=== PATIENT | female | born 1950 | race Caucasian/White ===

== ENCOUNTER 2017-10-06 17:02 | Outpatient (CLI) | payer MEDICARE, MEDICAID ==
--- NOTE | 2017-10-06 18:50 | RAD ---
RIGHT WRIST THREE VIEWS: INDICATIONS: Injury with pain. Assess for fracture. FINDINGS: There is an intraosseous cyst in the mid scaphoid, consistent with an intraosseous ganglion or geode. Mild widening of the scapholunate space may indicate ligamentous injury. Mild degenerative change at the carpometacarpal joints and intercarpal joints. No acute fracture identified. IMPRESSION: 1. Question ligamentous injury with widening of the scapholunate space. 2. Cystic change in the scaphoid, as described. 3. Mild degenerative changes. 4. No acute fracture identified. POS: [facility]
--- NOTE | 2017-10-06 18:53 | RAD ---
RIGHT ELBOW THREE VIEWS: HISTORY: Injury with pain. Assess for fracture. FINDINGS: Degenerative changes at the elbow noted with mild spurring from the coronoid. No fracture. No joint effusion seen. IMPRESSION: No acute fracture identified. POS: [facility]
--- NOTE | 2017-10-06 18:54 | RAD ---
RIGHT SHOULDER THREE VIEWS: HISTORY: Injury with pain. Assess for fracture. FINDINGS: No evidence of fracture or dislocation. Mild degenerative changes noted with spurring from the humer al head. AC joint is normally aligned. IMPRESSION: No acute fracture or dislocation identified. POS: [facility]
== END 2017-10-06 17:03 | disposition home or self-care (01) ==
LOC: RAD 17:02
PROVIDERS: ATTEND Family Medicine
DX: M25.531 Pain in right wrist (principal); M25.521 Pain in right elbow; M19.031 Primary osteoarthritis, right wrist

== ENCOUNTER 2017-12-19 13:57 | Outpatient (CLI) | payer MEDICARE, MEDICAID ==
--- NOTE | 2017-12-19 15:40 | MRI ---
MR OF THE RIGHT SHOULDER WITHOUT CONTRAST: INDICATION: Right shoulder pain, concern for impingement syndrome. TECHNIQUE: Multiplanar, multisequence MR images were obtained of the right shoulder without IV contrast. Motion artifact heavily limits image detail. FINDINGS: There is moderate to severe tendinosis of the supraspinatus and infraspinatus. There is a high-grade near-complete bursal surface tear involving the anterior mid supraspinatus at the footprint measurin g approximately 0.6 x 2 cm. There is abnormal linear T2 signal involving the superior glenoid labrum extending beyond the biceps anchor suspicious for a type II SLAP tear. There is some intrasubstance degenerative signal of the biceps anchor and superior glenoid labrum. The biceps tendon is located. The inferior glenohumeral labral ligamentous complex appears intact. There is mild to moderate AC joint osteoarthrosis. There is an inferior projecting osteophyte off of the AC joint causing mild to moderate encroachment on the subjacent supraspinatus. No muscular atrophy is evident. No enlarged lymph nodes are present. IMPRESSION: 1. High-grade partial thickness bursal surface tear involving the anterior supraspinatus at the foot print. This involves approximately 90% of the tendon thickness. This is a near complete rotator cuf f tear. 2. Severe tendinosis of the supraspinatus and infraspinatus. 3. Type II superior labrum anterior to posterior tear with some degenerative intrasubstance signal o f the superior glenoid labrum and biceps anchor. 4. Moderate acromioclavicular joint osteoarthrosis with mild encroachment on the supraspinatus. POS: [facility]
== END 2017-12-19 13:58 | disposition home or self-care (01) ==
LOC: TBSIIMAG 13:57
PROVIDERS: ATTEND Student in an Organized Health Care Education/Training Program
DX: M75.41 Impingement syndrome of right shoulder (principal); M75.121 Complete rotator cuff tear or rupture of right shoulder, not specified as traumatic; M19.011 Primary osteoarthritis, right shoulder; S43.431A Superior glenoid labrum lesion of right shoulder, initial encounter

== ENCOUNTER 2018-01-13 14:21 | Outpatient (CLI) | payer MEDICARE, MEDICAID ==
[2018-01-13 15:25] LABS: Hemoglobin 13.5 g/dL (12.0-16.0); Mean Corpuscular HGB CONC 33.4 g/dL (32.0-36.0); Mean Corpuscular Hemoglobin 28.4 pg (27.0-31.0); Mean Platelet Volume 9.8 fL (7.4-10.4); Platelet Count 165 thou/uL (130-400); RBC Distribution Width 13.1 % (11.5-14.5); Red Blood Cell (RBC) Count 4.75 mill/uL (4.20-5.40); White Blood Cell (WBC) Count 8.6 thou/uL (4.8-10.8)
[2018-01-13 15:43] LABS: Anion Gap 13 mmol/L (10-20); BUN (Urea Nitrogen) 23 mg/dL (9.8-20.1); Calc. Creatinine Clearance 0 mL/min (70-130); Calcium 9.6 mg/dL (7.8-10.44); Carbon Dioxide 28 mmol/L (23-31); Chloride 104 mmol/L (98-107); Estimated GFR-MDRD 50; Glucose 151 mg/dL (80-115); Potassium 3.8 mmol/L (3.5-5.1); Sodium 141 mmol/L (136-145)
--- NOTE | 2018-01-14 15:24 | EKG ---
Test Reason : Blood Pressure : / mmHG Vent. Rate : 072 BPM Atrial Rate : 072 BPM P-R Int : 146 ms QRS Dur : 090 ms QT Int : 402 ms P-R-T Axes : 058 -03 024 degrees QTc Int : 440 ms Normal sinus rhythm Cannot exclude Anterior infarct , age undetermined Abnormal ECG Confirmed by MADDISON HARE ([id number]) on 01/14/2018 3:24:11 PM Referred By: WOOD Confirmed By:MADDISON HARE
== END 2018-01-13 14:22 | disposition home or self-care (01) ==
LOC: LABBT 14:21
PROVIDERS: ATTEND Orthopaedic Surgery
DX: Z01.818 Encounter for other preprocedural examination (principal); M75.101 Unspecified rotator cuff tear or rupture of right shoulder, not specified as traumatic
CPT/HCPCS: 80048; 85027; 93005; 93010

== ENCOUNTER 2018-01-15 07:18 | Observation (INO) | payer MEDICARE, MEDICAID ==
[2018-01-13 14:53] VITALS: BMI 47.3
[2018-01-15] MEDS ORDERED: Fentanyl 100 MCG/2 ML VIAL ONE ×2 (08:08→12:14)
[2018-01-15] MEDS ORDERED: Midazolam HCl 2 mg/2 ml Vial ONE (08:08)
[2018-01-15] MEDS ORDERED: Levofloxacin 500 mg/D5W 100 ml Premix Bag ONE (09:29)
[2018-01-15] MEDS ORDERED: Clindamycin/D5W 900 mg/50 ml Premix Bag ONE (09:29)
[2018-01-15] MEDS ORDERED: Ondansetron HCl/PF 4 MG/2 ML Vial IVP PRN ×2 (10:02→12:04)
[2018-01-15] MEDS ORDERED: Ketorolac Tromethamine 30 MG/ML VIAL IVP PRN (10:02)
[2018-01-15] MEDS ORDERED: HYDROcodone/Acetaminophen 10/325 mg Tablet PO PRN ×2 (10:02)
[2018-01-15] MEDS ORDERED: Ropivacaine HCl/PF 1,100 MG in Sodium Chloride 0.9% 440 ML NERVE BLCK SCH (10:02)
[2018-01-15] MEDS ORDERED: traMADol HCl 50 MG TAB PO PRN ×2 (10:02)
[2018-01-15] MEDS ORDERED: Zolpidem Tartrate 5 MG TAB PO PRN (10:02)
[2018-01-15] MEDS ORDERED: Promethazine HCl 25 MG/ML VIAL IM PRN ×2 (10:02→12:04)
[2018-01-15] MEDS ORDERED: Fentanyl 100 MCG/2 ML VIAL IV PRN (10:04)
[2018-01-15] MEDS ORDERED: Bupivacaine HCl 0.5%/Epinephrine 1:200,000/PF 30 ml Vial ONE (10:40)
[2018-01-15] MEDS ORDERED: Promethazine HCl 25 MG/ML VIAL SLOW IVP PRN (12:04)
[2018-01-15] MEDS ORDERED: Ropivacaine 0.2% HCl/PF (40 MG/20 ML VIAL) ONE (13:45)
[2018-01-15] MEDS ORDERED: Ropivacaine 0.5% HCl/PF (150 MG/30 ML VIAL) ONE (13:45)
--- NOTE | 2018-01-15 14:04 | OP ---
DATE OF PROCEDURE: 01/15/2018 PREOPERATIVE DIAGNOSES: Right rotator cuff tear. POSTOPERATIVE DIAGNOSIS: Right rotator cuff tear with biceps tendonopathy. PROCEDURE PERFORMED: 1. Right rotator cuff repair, double row transosseous equivalent. 2. Limited debridement with biceps tenotomy. STAFF: Negro Miles M.D. LEAD SIMULATION MODELING ENGINEER: None. ANESTHESIA: [place]. The patient received general endotracheal intubation with interscalene block. ESTIMATED BLOOD LOSS: Less than 50 mL. TOURNIQUET TIME: None. IMPLANTS: An Arthrex 5.5 Bio[employer]posite corkscrew and 4.75 Bio[employer]posite SwiveLock. ANTIBIOTICS: Clindamycin 900, Levaquin 500. COMPLICATIONS: None. HISTORY OF PRESENT ILLNESS: Ms. Murray is a 67-year-old female who presented to me with 8/10 pain, fell 2 months ago, right hand dominant, retired diabetes and asthmatic. The patient had pain in her arm. She had an injection that did not completely relieve her pain. The patient had MRI evidence of general labral tear, full thickness rotator cuff tear, tendinosis, AC joint, DJD. I discussed with patient the risks and benefits of a right arthroscopic rotator cuff repair with biceps tenotomy and possible decompression. I discussed the risks and benefits of the surgery to include pain, scar, bleeding, infection, damage to vital structures, decreased range of motion, decreased strength, continued pain despite surgical intervention, loss of life or limb. The patient understood these risks and benefits and elected to proceed. Time out was performed designating the patient's right upper extremity as the operative site based on sight, consents, and markings. PROCEDURE NOTE: After timeout was performed, the patient in a posterior working portal placed. I had to replace the posterior working portal because of the patient's size and body habitus, it was very difficult to position, because it was difficult to palpate bony prominences of the acromion, clavicle or coracoid process. I had to reposition my portal a little bit more posteriorly to help with my entry into the joint. Once I found the joint, found the patient's biceps and placed an anterior portal I visualized the biceps along the anterior lateral working, it was difficult to position and finally I cut the biceps tendon. I could see part of the tear, but there was no obvious full thickness defects. There was a little scuffing from my placement of my entry. The patient had a decompression of the subacromial space. I then moved subacromially, placed a lateral working portal, it was difficult to analyze, I found it. I debrided and exposed the tear which I took a picture of, I placed in a cannula anterior portal there. The patient had a cannula in placed, passed 4 sutures, tied horizontal mattress sutures, placed a double row, transosseous equivalent, passed it down to bone, had stable fixation, had good repair, took pictures, washed and closed. The patient will be discharged home based off of anesthesia if she continued to be sedated, has any issues. I will follow up with the patient in 2 weeks. ROSIBEL
[2018-01-15] MEDS ORDERED: PROPOFOL 200 MG/20 ML VIAL ONE (14:31)
[2018-01-15] MEDS ORDERED: Glycopyrrolate 0.2 MG/ML 5 ML SYRINGE ONE (14:31)
[2018-01-15] MEDS ORDERED: Dexamethasone 20 MG/5 ML VIAL ONE (14:31)
[2018-01-15] MEDS ORDERED: Ondansetron HCl/PF 4 MG/2 ML Vial ONE (14:31)
[2018-01-16 11:27] VITALS: TEMP 98.2
[2018-01-16 15:19] VITALS: BP 153/75
== END 2018-01-16 16:05 | disposition home or self-care (01) ==
LOC: SDC 07:18 → SURG A 13:46
PROVIDERS: ADMIT Orthopaedic Surgery; ATTEND Orthopaedic Surgery
PROC: 0LQ14ZZ Repair Right Shoulder Tendon, Percutaneous Endoscopic Approach (ICD-10-PCS; principal; 2018-01-15)
DX: M75.111 Incomplete rotator cuff tear or rupture of right shoulder, not specified as traumatic (principal); M67.929 Unspecified disorder of synovium and tendon, unspecified upper arm; M81.0 Age-related osteoporosis without current pathological fracture; I10 Essential (primary) hypertension; Z79.899 Other long term (current) drug therapy; Z88.0 Allergy status to penicillin
CPT/HCPCS: 29827; 96374; C1713 ×2; G0378; J0670; J1100; J1956; J2250; J2405; J2704; J2795; J3010; J3490; J7050

== ENCOUNTER 2018-09-11 13:29 | Outpatient (CLI) | payer MEDICARE, MEDICAID ==
--- NOTE | 2018-09-11 15:03 | BD ---
BONE DENSITOMETRY USING DEXA: Date: 09/11/18 HISTORY: Postmenopausal screening for osteoporosis. FINDINGS: Lumbar Spine: BMD (g/cm2) L1 1.000 T-Score: 0.1 Z-Score: 1.9 L2 0.957 T-Score: -0.6 Z-Score: 1.4 L3 1.097 T-Score: 0.1 Z-Score: 2.3 L4 1.189 T-Score: 1.2 Z-Score: 3.4 L1-L4 1.071 T-Score: 0.2 Z-Score: 2.3 Femoral Neck: 0.741 T-Score: -1.0 Z-Score: 0.8 Total Femur: 0.999 T-Score: 0.5 Z-Score: 1.9 IMPRESSION: Normal bone mineral density. No evidence of osteopenia/osteoporosis. POS: OFF
--- NOTE | 2018-09-14 13:41 | MMO ---
MAMMO Bilat Diag [facility]. CLINICAL HISTORY: Patient is 68 years old and is seen for diagnostic exam. The patient has the following family history of breast cancer: maternal aunt, malignant (generic). The patient has no personal history of cancer. VIEWS: The views performed were: bilateral craniocaudal with tomosynthesis; bilateral mediolateral oblique with tomosynthesis; bilateral mediolateral with tomosynthesis; and left exaggerated craniocaudal. FILMS COMPARED: The present examination has been compared to prior imaging studies performed at [facility] on 10/30/2006 and 09/10/2018. MAMMOGRAM FINDINGS: The breasts are almost entirely fat. Benign calcifications are noted bilaterally. There are no suspicious masses, calcifications or areas of architectural distortion. IMPRESSION: FINDINGS IN BOTH BREASTS ARE BENIGN. A ROUTINE FOLLOW-UP MAMMOGRAM IN 1 YEAR IS RECOMMENDED. THE RESULTS OF THIS EXAM WERE SENT TO THE PATIENT. ACR BI-RADS Category 2 - Benign finding MAMMOGRAPHY NOTE: 1. A negative mammogram report should not delay a biopsy if a dominant of clinically suspicious mass is present. 2. Approximately 10% to 15% of breast cancers are not detected by mammography. 3. Adenosis and dense breasts may obscure an underlying neoplasm.
== END 2018-09-11 13:30 | disposition home or self-care (01) ==
LOC: BICMAMMO 13:29
PROVIDERS: ATTEND Family Medicine
DX: Z13.820 Encounter for screening for osteoporosis (principal); R92.8 Other abnormal and inconclusive findings on diagnostic imaging of breast; Z80.3 Family history of malignant neoplasm of breast
CPT/HCPCS: 77066; 77080; G0279

== ENCOUNTER 2020-10-05 14:08 | Outpatient (CLI) | payer MEDICARE, OTHER | END 2020-10-05 14:09 | disposition home or self-care (01) | LOC: BICRAD 14:08 | PROVIDERS: ATTEND Internal Medicine Pulmonary Disease | DX: R06.00 Dyspnea, unspecified (principal) | CPT/HCPCS: 71046 ==

== ENCOUNTER 2020-12-15 20:47 | Inpatient (IN) | payer MEDICARE, OTHER ==
[2020-12-15] MEDS ORDERED: Albuterol Sulfate 2.5 mg/3 ml Neb NEB PRN (22:35)
[2020-12-15 22:53] LABS: CKMB 1.9 ng/mL (0-6.6)
[2020-12-15] MEDS ORDERED: Dextrose 50% Abboject 50 ML SYRINGE SLOW IVP PRN (23:46)
[2020-12-15] MEDS ORDERED: Dextrose 5% in Water 1,000 ML IV PRN (23:46)
[2020-12-16 00:34] VITALS: BMI 47.8
[2020-12-16 01:59] LABS: Troponin I 0.069 ng/mL (< 0.028)
[2020-12-16] MEDS ORDERED: Gabapentin 400 MG CAP PO PRN (02:51)
[2020-12-16] MEDS ORDERED: Gabapentin 400 MG CAP PO SCH ×2 (03:00→09:00)
[2020-12-16 05:12] LABS: #Basophils 0.2 thou/uL (0.0-0.2); #Lymphocytes 0.6 thou/uL (1.20-3.40); #Monocytes 0.1 thou/uL (0.11-0.59); #Neutrophils 8.9 thou/uL (1.40-6.50); %Eosinophils 0.2 % (0.0-10.0); %Lymphocytes 6.6 % (21.0-51.0); %Monocytes 1.1 % (0.0-10.0); %Neutrophils 90.1 % (42.0-75.0); Hemoglobin 12.4 g/dL (12.0-16.0); Mean Corpuscular HGB CONC 32.4 g/dL (32.0-36.0); Mean Corpuscular Hemoglobin 27.7 pg (27.0-31.0); Mean Corpuscular Volume 85.5 fL (78.0-98.0); Mean Platelet Volume 10.1 fL (7.4-10.4); Platelet Count 109 thou/uL (130-400); RBC Distribution Width 13.5 % (11.5-14.5); Red Blood Cell (RBC) Count 4.49 mill/uL (4.20-5.40); White Blood Cell (WBC) Count 9.8 thou/uL (4.8-10.8)
[2020-12-16 05:26] LABS: Anion Gap 13 mmol/L (10-20); BUN (Urea Nitrogen) 23 mg/dL (9.8-20.1); Calc. Creatinine Clearance 79 mL/min (70-130); Calcium 8.6 mg/dL (7.8-10.44); Carbon Dioxide 24 mmol/L (23-31); Chloride 103 mmol/L (98-107); Glucose 431 mg/dL (83-110); Sodium 136 mmol/L (136-145)
[2020-12-16 05:29] LABS: Troponin I 0.104 ng/mL (< 0.028)
[2020-12-16] MEDS: HumaLOG 300 UNITS/3 ML VIAL SC PRN ×4 (05:53→20:54)
[2020-12-16] MEDS: Mometasone 100 MCG/PUFF (1 INHALER) INH SCH ×2 (07:20→18:21)
[2020-12-16] MEDS: Losartan/Hydrochlorothiazide 100 mg/25 mg Tablet PO SCH (08:41)
[2020-12-16] MEDS: metFORMIN 500 MG TAB PO SCH ×2 (08:42→16:33)
[2020-12-16] MEDS: Citalopram 20 MG TAB PO SCH (08:42)
[2020-12-16] MEDS: Carvedilol 6.25 MG TAB PO SCH ×2 (08:42→20:49)
[2020-12-16] MEDS: predniSONE 20 MG TAB PO SCH (08:42)
[2020-12-16] MEDS: Enoxaparin Sodium 40 MG/0.4 ML SYRINGE SC SCH (08:43)
[2020-12-16] MEDS: Montelukast Sodium 10 mg Tablet PO SCH ×2 (08:44→20:49)
[2020-12-16] MEDS ORDERED: Acetaminophen 325 MG TAB PO PRN (08:49)
[2020-12-16] MEDS ORDERED: Azithromycin 250 MG TAB PO SCH ×3 (09:00→21:00)
[2020-12-16] MEDS ORDERED: Non-Formulary Item 1 EACH (Fluticasone/Umeclidin/Vilanter [Trelegy Ellipta 200-62.5-25] 1 IH SCH (09:00)
[2020-12-16] MEDS ORDERED: FLUTICASONE PROPIONATE 100 MCG INH SCH (09:00)
[2020-12-16] MEDS: rOPINIRole HCl 2 MG TAB PO SCH (20:49)
[2020-12-16] MEDS: Atorvastatin Calcium 10 MG TAB PO SCH (20:49)
[2020-12-17] MEDS ORDERED: Calcium Carbonate 500 MG ChewTAB PO PRN (05:09)
[2020-12-17 05:25] LABS: Anion Gap 13 mmol/L (10-20); BUN (Urea Nitrogen) 25 mg/dL (9.8-20.1); Calc. Creatinine Clearance 86 mL/min (70-130); Calcium 8.7 mg/dL (7.8-10.44); Carbon Dioxide 25 mmol/L (23-31); Chloride 106 mmol/L (98-107); Glucose 232 mg/dL (83-110); Potassium 4.2 mmol/L (3.5-5.1); Sodium 140 mmol/L (136-145)
[2020-12-17] MEDS: HumaLOG 300 UNITS/3 ML VIAL SC PRN ×4 (05:32→21:35)
[2020-12-17] MEDS: Mometasone 100 MCG/PUFF (1 INHALER) INH SCH ×2 (07:20→18:33)
[2020-12-17] MEDS: Enoxaparin Sodium 40 MG/0.4 ML SYRINGE SC SCH (10:10)
[2020-12-17] MEDS: Montelukast Sodium 10 mg Tablet PO SCH ×2 (10:10→21:30)
[2020-12-17] MEDS: Carvedilol 6.25 MG TAB PO SCH ×2 (10:10→21:30)
[2020-12-17] MEDS: metFORMIN 500 MG TAB PO SCH ×2 (10:11→17:44)
[2020-12-17] MEDS: Citalopram 20 MG TAB PO SCH (10:11)
[2020-12-17] MEDS: Losartan/Hydrochlorothiazide 100 mg/25 mg Tablet PO SCH (10:11)
[2020-12-17] MEDS: Azithromycin 250 MG TAB PO SCH (10:11)
[2020-12-17] MEDS: predniSONE 20 MG TAB PO SCH (10:11)
[2020-12-17] MEDS ORDERED: Amlodipine 5 MG TAB PO SCH (16:00)
[2020-12-17] MEDS: rOPINIRole HCl 2 MG TAB PO SCH (21:30)
[2020-12-17] MEDS: Atorvastatin Calcium 10 MG TAB PO SCH (21:31)
[2020-12-18 05:24] LABS: Anion Gap 13 mmol/L (10-20); BUN (Urea Nitrogen) 33 mg/dL (9.8-20.1); Calc. Creatinine Clearance 94 mL/min (70-130); Carbon Dioxide 27 mmol/L (23-31); Chloride 106 mmol/L (98-107); Glucose 105 mg/dL (83-110); Potassium 4.1 mmol/L (3.5-5.1); Sodium 142 mmol/L (136-145)
[2020-12-18] MEDS: Mometasone 100 MCG/PUFF (1 INHALER) INH SCH ×2 (08:33→18:35)
[2020-12-18] MEDS: Amlodipine 5 MG TAB PO SCH (08:52)
[2020-12-18] MEDS: Carvedilol 6.25 MG TAB PO SCH ×2 (08:52→21:14)
[2020-12-18] MEDS: Citalopram 20 MG TAB PO SCH (08:52)
[2020-12-18] MEDS: Montelukast Sodium 10 mg Tablet PO SCH (08:52)
[2020-12-18] MEDS: Azithromycin 250 MG TAB PO SCH (08:53)
[2020-12-18] MEDS: metFORMIN 500 MG TAB PO SCH ×2 (08:53→17:10)
[2020-12-18] MEDS: predniSONE 20 MG TAB PO SCH (08:53)
[2020-12-18] MEDS: Losartan/Hydrochlorothiazide 100 mg/25 mg Tablet PO SCH (08:54)
[2020-12-18] MEDS: Enoxaparin Sodium 40 MG/0.4 ML SYRINGE SC SCH (08:54)
[2020-12-18] MEDS: HumaLOG 300 UNITS/3 ML VIAL SC PRN ×2 (17:21→21:17)
[2020-12-18] MEDS: rOPINIRole HCl 2 MG TAB PO SCH (21:14)
[2020-12-18] MEDS: Atorvastatin Calcium 10 MG TAB PO SCH (21:14)
[2020-12-19 05:20] LABS: Anion Gap 12 mmol/L (10-20); BUN (Urea Nitrogen) 30 mg/dL (9.8-20.1); Calc. Creatinine Clearance 87 mL/min (70-130); Calcium 8.8 mg/dL (7.8-10.44); Carbon Dioxide 31 mmol/L (23-31); Chloride 101 mmol/L (98-107); Glucose 116 mg/dL (83-110); Potassium 3.7 mmol/L (3.5-5.1); Sodium 140 mmol/L (136-145)
[2020-12-19 06:59] LABS: #Eosinphils 0.2 thou/uL (0.0-0.7); #Lymphocytes 2.8 thou/uL (1.20-3.40); #Monocytes 0.8 thou/uL (0.11-0.59); #Neutrophils 5.6 thou/uL (1.40-6.50); %Basophils 0.2 % (0.0-1.0); %Eosinophils 2.3 % (0.0-10.0); %Lymphocytes 29.8 % (21.0-51.0); %Monocytes 8.3 % (0.0-10.0); %Neutrophils 59.3 % (42.0-75.0); Hemoglobin 11.7 g/dL (12.0-16.0); Mean Corpuscular HGB CONC 32.1 g/dL (32.0-36.0); Mean Corpuscular Hemoglobin 27.5 pg (27.0-31.0); Mean Corpuscular Volume 85.8 fL (78.0-98.0); Mean Platelet Volume 9.2 fL (7.4-10.4); Platelet Count 112 thou/uL (130-400); RBC Distribution Width 13.5 % (11.5-14.5); Red Blood Cell (RBC) Count 4.26 mill/uL (4.20-5.40); White Blood Cell (WBC) Count 9.4 thou/uL (4.8-10.8)
[2020-12-19] MEDS: Mometasone 100 MCG/PUFF (1 INHALER) INH SCH (07:32)
[2020-12-19] MEDS: Enoxaparin Sodium 40 MG/0.4 ML SYRINGE SC SCH (09:51)
[2020-12-19] MEDS: Losartan/Hydrochlorothiazide 100 mg/25 mg Tablet PO SCH (09:51)
[2020-12-19] MEDS: Citalopram 20 MG TAB PO SCH (09:51)
[2020-12-19] MEDS: Azithromycin 250 MG TAB PO SCH (09:52)
[2020-12-19] MEDS: Carvedilol 6.25 MG TAB PO SCH (09:52)
[2020-12-19] MEDS: Montelukast Sodium 10 mg Tablet PO SCH (09:52)
[2020-12-19] MEDS: metFORMIN 500 MG TAB PO SCH (09:52)
[2020-12-19] MEDS: predniSONE 20 MG TAB PO SCH (09:52)
[2020-12-19] MEDS: Amlodipine 5 MG TAB PO SCH (09:52)
[2020-12-19 12:43] VITALS: BP 154/72; TEMP 97.7
== END 2020-12-19 14:50 | disposition home or self-care (01) | DRG 189 ==
LOC: ERS 20:47 → 2NO 22:09
PROVIDERS: ADMIT Family Medicine; ATTEND Family Medicine
DX: J96.01 Acute respiratory failure with hypoxia (principal); J44.1 Chronic obstructive pulmonary disease with (acute) exacerbation; Z68.42 Body mass index [BMI] 45.0-49.9, adult; E66.2 Morbid (severe) obesity with alveolar hypoventilation; I47.2 Ventricular tachycardia; E78.5 Hyperlipidemia, unspecified; I10 Essential (primary) hypertension; G25.81 Restless legs syndrome; F32.9 Major depressive disorder, single episode, unspecified; Z96.653 Presence of artificial knee joint, bilateral; R77.8 Other specified abnormalities of plasma proteins; E11.65 Type 2 diabetes mellitus with hyperglycemia; F41.0 Panic disorder [episodic paroxysmal anxiety]; Z88.0 Allergy status to penicillin; Z88.8 Allergy status to other drugs, medicaments and biological substances; Z91.09 Other allergy status, other than to drugs and biological substances; Z79.899 Other long term (current) drug therapy; Z79.51 Long term (current) use of inhaled steroids; Z79.84 Long term (current) use of oral hypoglycemic drugs; Z90.49 Acquired absence of other specified parts of digestive tract; Z90.710 Acquired absence of both cervix and uterus
CPT/HCPCS: 36415; 36416; 80048; 82553; 83735; 84145; 84443; 84484; 85025; 93005; 93306; 94640; J1650; J1815; J7512; J7620

== ENCOUNTER 2021-01-03 13:14 | Outpatient (CLI) | payer MEDICARE, OTHER | END 2021-01-03 13:15 | disposition home or self-care (01) | LOC: BICRAD 13:14 | PROVIDERS: ATTEND Internal Medicine Pulmonary Disease | DX: R06.00 Dyspnea, unspecified (principal) | CPT/HCPCS: 71046 ==

== ENCOUNTER 2021-08-23 13:37 | Outpatient (CLI) | payer OTHER ==
[2021-08-24 00:11] LABS: SARS-CoV-2 PCR by NAA Not Detected (NotDetected)
== END 2021-08-23 13:38 | disposition home or self-care (01) ==
LOC: LABBT 13:37
PROVIDERS: ATTEND Internal Medicine Gastroenterology
DX: Z01.812 Encounter for preprocedural laboratory examination (principal); R19.5 Other fecal abnormalities; J44.9 Chronic obstructive pulmonary disease, unspecified; G47.30 Sleep apnea, unspecified; E66.01 Morbid (severe) obesity due to excess calories; Z20.822 Contact with and (suspected) exposure to COVID-19
CPT/HCPCS: U0003; U0005

== ENCOUNTER 2021-08-28 07:15 | Day surgery (SDC) | payer OTHER ==
[2021-08-23 12:02] VITALS: BMI 47.0
[2021-08-28] MEDS ORDERED: Lidocaine 1% PF 5 ML VIAL ONE (09:00)
[2021-08-28] MEDS ORDERED: PROPOFOL 200 MG/20 ML VIAL ONE (09:00)
== END 2021-08-28 10:40 | disposition home or self-care (01) ==
LOC: SDC 07:15
PROVIDERS: ATTEND Internal Medicine Gastroenterology
PROC: 0DBL8ZX Excision of Transverse Colon, Via Natural or Artificial Opening Endoscopic, Diagnostic (ICD-10-PCS; principal; 2021-08-28)
DX: D12.3 Benign neoplasm of transverse colon (principal); K57.30 Diverticulosis of large intestine without perforation or abscess without bleeding; K64.4 Residual hemorrhoidal skin tags; K21.9 Gastro-esophageal reflux disease without esophagitis; I11.0 Hypertensive heart disease with heart failure; I50.9 Heart failure, unspecified; E11.9 Type 2 diabetes mellitus without complications; J44.9 Chronic obstructive pulmonary disease, unspecified; E78.5 Hyperlipidemia, unspecified; J30.1 Allergic rhinitis due to pollen; J30.81 Allergic rhinitis due to animal (cat) (dog) hair and dander; Z79.82 Long term (current) use of aspirin; Z79.84 Long term (current) use of oral hypoglycemic drugs; Z79.899 Other long term (current) drug therapy; Z88.0 Allergy status to penicillin; Z91.038 Other insect allergy status; Z91.048 Other nonmedicinal substance allergy status
CPT/HCPCS: 88305; J2704

== ENCOUNTER 2021-11-01 09:36 | Outpatient (CLI) | payer MEDICARE, MEDICAID | END 2021-11-01 09:37 | disposition home or self-care (01) | LOC: TBSIIMAG 09:36 | PROVIDERS: ATTEND Orthopaedic Surgery | DX: M48.061 Spinal stenosis, lumbar region without neurogenic claudication (principal); M51.36 Other intervertebral disc degeneration, lumbar region | CPT/HCPCS: 72148 ==

== ENCOUNTER 2022-02-19 17:29 | Inpatient (IN) | payer OTHER ==
[~2022-02-19 17:29] MED LIST: Iopamidol 370 76% 100 ML VIAL ONE
[2022-02-19 18:24] LABS: #Eosinphils 0.4 thou/uL (0.0-0.7); #Lymphocytes 1.8 thou/uL (1.20-3.40); #Monocytes 0.9 thou/uL (0.11-0.59); #Neutrophils 6.5 thou/uL (1.40-6.50); %Basophils 0.3 % (0.0-1.0); %Lymphocytes 18.6 % (21.0-51.0); %Neutrophils 68.2 % (42.0-75.0); Hemoglobin 10.3 g/dL (12.0-16.0); Mean Corpuscular HGB CONC 31.5 g/dL (32.0-36.0); Mean Corpuscular Hemoglobin 26.2 pg (27.0-31.0); Mean Corpuscular Volume 83.2 fL (78.0-98.0); Mean Platelet Volume 9.9 fL (7.4-10.4); Platelet Count 134 thou/uL (130-400); RBC Distribution Width 14.3 % (11.5-14.5); Red Blood Cell (RBC) Count 3.94 mill/uL (4.20-5.40); White Blood Cell (WBC) Count 9.6 thou/uL (4.8-10.8)
[2022-02-19 18:46] LABS: Base Excess (BEa) 1.9 mEq/L (-2.0 to +3.0); Calcium, Ionized (arterial) 1.14 mmol/L (1.12-1.30); Carboxyhemoglobin (COHb) 0.4 gm% (0.0-3.0); Hemoglobin (Hb) 10.3 g/dL (12.0-16.0); O2 Tension (PaO2), arterial 77.1 mmHg (> 70.0); Potassium - ABG Lab 3.97 mmol/L (3.70-5.30); pH, Arterial 7.41 (7.35-7.45)
[2022-02-19 18:47] LABS: Puncture Site LRA
[2022-02-19 18:53] LABS: ALT (SGPT) 12 U/L (8-55); AST (SGOT) 10 U/L (5-34); Albumin 3.5 g/dL (3.4-4.8); Alkaline Phosphatase 75 U/L (40-110); Anion Gap 12 mmol/L (10-20); BUN (Urea Nitrogen) 16 mg/dL (9.8-20.1); Bilirubin, Total 0.4 mg/dL (0.2-1.2); CK (CPK) 47 U/L (29-168); Calc. Creatinine Clearance 0 mL/min (70-130); Calcium 8.7 mg/dL (7.8-10.44); Carbon Dioxide 27 mmol/L (23-31); Chloride 107 mmol/L (98-107); Estimated GFR 63; Globulin 2.3 g/dL (2.4-3.5); Glucose 152 mg/dL (83-110); Lipase 21 U/L (8-78); Magnesium 1.7 mg/dL (1.6-2.6); Protein, Total 5.8 g/dL (5.8-8.1); Sodium 142 mmol/L (136-145)
[2022-02-19] MEDS ORDERED: Albuterol Sulfate 2.5 mg/3 ml Neb ONE (20:04)
[2022-02-19] MEDS ORDERED: Nitroglycerin 2% Ointment 1 INCH/1 GM Packet ONE (20:05)
[2022-02-19] MEDS ORDERED: Furosemide 40 MG/4 ML VIAL ONE (20:05)
[2022-02-19] MEDS ORDERED: Aspirin 325 MG TAB ONE (20:05)
[2022-02-19] MEDS ORDERED: Dexamethasone 4 mg/ml Vial ONE (20:05)
[2022-02-19] MEDS ORDERED: Magnesium Oxide 400 MG TAB PO SCH (20:30)
[2022-02-19] MEDS ORDERED: Azithromycin 250 MG TAB PO SCH (21:15)
[2022-02-19] MEDS ORDERED: Albuterol 200 PUFF (6.7GM INHALER) INH PRN (21:28)
[2022-02-19] MEDS ORDERED: Loratadine 10 MG TAB PO PRN (21:31)
[2022-02-19] MEDS ORDERED: Benzonatate 100 MG CAP PO PRN (21:50)
[2022-02-19] MEDS ORDERED: guaiFENesin ER 600 MG TAB PO SCH (22:00)
[2022-02-19 22:12] VITALS: BMI 47.5
[2022-02-19] MEDS ORDERED: REMDESIVIR 200 MG in Sodium Chloride 0.9% 250 ML 210 ML IV SCH (22:30)
[2022-02-19] MEDS ORDERED: Carvedilol 25 MG TAB PO SCH (22:45)
[2022-02-19] MEDS ORDERED: hydrALAZINE 25 MG TAB PO SCH (22:46)
[2022-02-19] MEDS ORDERED: Dextrose 5% in Water 1,000 ML IV PRN (23:25)
[2022-02-19] MEDS ORDERED: Dextrose 50% Abboject 50 ML SYRINGE SLOW IVP PRN (23:25)
[2022-02-19] MEDS ORDERED: hydrALAZINE 20 MG/ML VIAL SLOW IVP PRN (23:27)
[2022-02-19] MEDS: Insulin Regular 300 UNITS/3 ML VIAL SC PRN (23:45)
[2022-02-20] MEDS: Acetaminophen 325 MG TAB PO PRN ×2 (00:42→23:20)
[2022-02-20] MEDS: Albuterol 200 PUFF (6.7GM INHALER) INH SCH ×5 (02:04→18:24)
[2022-02-20 04:34] LABS: #Lymphocytes 0.9 thou/uL (1.20-3.40); #Monocytes 0.1 thou/uL (0.11-0.59); #Neutrophils 7.3 thou/uL (1.40-6.50); %Basophils 0.3 % (0.0-1.0); %Eosinophils 0.5 % (0.0-10.0); %Lymphocytes 10.6 % (21.0-51.0); %Monocytes 1.3 % (0.0-10.0); %Neutrophils 87.4 % (42.0-75.0); Hemoglobin 10.4 g/dL (12.0-16.0); Mean Corpuscular HGB CONC 30.7 g/dL (32.0-36.0); Mean Corpuscular Hemoglobin 25.6 pg (27.0-31.0); Mean Corpuscular Volume 83.6 fL (78.0-98.0); Platelet Count 137 thou/uL (130-400); RBC Distribution Width 14.3 % (11.5-14.5); Red Blood Cell (RBC) Count 4.07 mill/uL (4.20-5.40); White Blood Cell (WBC) Count 8.3 thou/uL (4.8-10.8)
[2022-02-20 04:58] LABS: Anion Gap 14 mmol/L (10-20); BUN (Urea Nitrogen) 17 mg/dL (9.8-20.1); Calc. Creatinine Clearance 88 mL/min (70-130); Calcium 9.1 mg/dL (7.8-10.44); Carbon Dioxide 28 mmol/L (23-31); Chloride 101 mmol/L (98-107); Estimated GFR 51; Glucose 328 mg/dL (83-110); Magnesium 1.7 mg/dL (1.6-2.6); Phosphorus 3.1 mg/dL (2.3-4.7); Potassium 4.4 mmol/L (3.5-5.1); Sodium 139 mmol/L (136-145)
[2022-02-20] MEDS ORDERED: Mometasone 200 MCG/Formoterol 5 MCG 120 PUFF INHALER INH SCH (06:30)
[2022-02-20] MEDS: Insulin Regular 300 UNITS/3 ML VIAL SC PRN ×3 (06:32→20:36)
[2022-02-20] MEDS ORDERED: Dexamethasone 4 MG TAB PO SCH (08:00)
[2022-02-20] MEDS: guaiFENesin ER 600 MG TAB PO SCH ×2 (08:31→20:36)
[2022-02-20] MEDS: Atorvastatin Calcium 10 MG TAB PO SCH (08:31)
[2022-02-20] MEDS: Amlodipine 10 MG TAB PO SCH (08:32)
[2022-02-20] MEDS: hydrALAZINE 25 MG TAB PO SCH ×3 (08:32→20:36)
[2022-02-20] MEDS: Montelukast Sodium 10 mg Tablet PO SCH (08:32)
[2022-02-20] MEDS: Empagliflozin 10 MG TAB PO SCH (08:33)
[2022-02-20] MEDS: Citalopram 20 MG TAB PO SCH (08:33)
[2022-02-20] MEDS: Carvedilol 25 MG TAB PO SCH ×2 (08:33→17:14)
[2022-02-20] MEDS: Enoxaparin Sodium 40 MG/0.4 ML SYRINGE SC SCH (08:34)
[2022-02-20] MEDS: Fluticasone Propionate Nasal Spray 16 gm Bottle NASAL SCH (08:34)
[2022-02-20] MEDS ORDERED: Dexamethasone 6 MG in Sodium Chloride 0.9% 50 ML IVPB SCH (09:00)
[2022-02-20] MEDS ORDERED: guaiFENesin ER 600 MG TAB PO SCH (09:00)
[2022-02-20] MEDS ORDERED: cefTRIAXone\\ROCEPHIN 1 GM in Sodium Chloride 0.9% 100 ML IVPB SCH ×2 (09:00→21:00)
[2022-02-20] MEDS ORDERED: Pantoprazole 40 MG VIAL IVP SCH (09:00)
[2022-02-20] MEDS: Mometasone 100 MCG/Formoterol 5 MCG 120 PUFF INHALER INH SCH (18:21)
[2022-02-20] MEDS ORDERED: Azithromycin 250 MG TAB PO SCH (21:00)
[2022-02-20] MEDS ORDERED: rOPINIRole HCl 2 MG TAB PO SCH (21:00)
[2022-02-20] MEDS ORDERED: Aspirin 325 MG TAB PO SCH (21:00)
[2022-02-20] MEDS ORDERED: REMDESIVIR 100 MG in Sodium Chloride 0.9% 250 ML 230 ML IV SCH (22:25)
[2022-02-21] MEDS: Insulin Regular 300 UNITS/3 ML VIAL SC PRN (05:42)
[2022-02-21 06:34] LABS: #Lymphocytes 1.4 thou/uL (1.20-3.40); #Monocytes 0.9 thou/uL (0.11-0.59); #Neutrophils 9.9 thou/uL (1.40-6.50); %Basophils 0.1 % (0.0-1.0); %Eosinophils 0.1 % (0.0-10.0); %Lymphocytes 11.3 % (21.0-51.0); %Monocytes 7.1 % (0.0-10.0); %Neutrophils 81.4 % (42.0-75.0); Hemoglobin 10.1 g/dL (12.0-16.0); Mean Corpuscular HGB CONC 30.3 g/dL (32.0-36.0); Mean Corpuscular Hemoglobin 25.8 pg (27.0-31.0); Platelet Count 148 thou/uL (130-400); RBC Distribution Width 14.4 % (11.5-14.5); Red Blood Cell (RBC) Count 3.92 mill/uL (4.20-5.40); White Blood Cell (WBC) Count 12.2 thou/uL (4.8-10.8)
[2022-02-21 06:47] LABS: Anion Gap 13 mmol/L (10-20); BUN (Urea Nitrogen) 23 mg/dL (9.8-20.1); Calc. Creatinine Clearance 84 mL/min (70-130); Carbon Dioxide 31 mmol/L (23-31); Chloride 103 mmol/L (98-107); Estimated GFR 49; Glucose 239 mg/dL (83-110); Potassium 4.3 mmol/L (3.5-5.1); Sodium 143 mmol/L (136-145)
[2022-02-21] MEDS: Mometasone 100 MCG/Formoterol 5 MCG 120 PUFF INHALER INH SCH (07:00)
[2022-02-21] MEDS ORDERED: predniSONE 20 MG TAB PO SCH (08:00)
[2022-02-21] MEDS: guaiFENesin ER 600 MG TAB PO SCH (08:27)
[2022-02-21] MEDS: hydrALAZINE 25 MG TAB PO SCH (08:27)
[2022-02-21] MEDS: Atorvastatin Calcium 10 MG TAB PO SCH (08:28)
[2022-02-21] MEDS: Citalopram 20 MG TAB PO SCH (08:28)
[2022-02-21] MEDS: Enoxaparin Sodium 40 MG/0.4 ML SYRINGE SC SCH (08:28)
[2022-02-21] MEDS: Carvedilol 25 MG TAB PO SCH (08:28)
[2022-02-21] MEDS: Empagliflozin 10 MG TAB PO SCH (08:29)
[2022-02-21] MEDS: Montelukast Sodium 10 mg Tablet PO SCH (08:29)
[2022-02-21] MEDS: Amlodipine 10 MG TAB PO SCH (08:29)
[2022-02-21] MEDS ORDERED: Breztri Aerosphere Inhaler INH SCH (09:00)
[2022-02-21] MEDS ORDERED: Aspirin 81 mg Enteric Coated Tablet PO SCH (09:00)
[2022-02-21] MEDS ORDERED: Valsartan 80 MG TAB PO SCH (09:00)
[2022-02-21] MEDS ORDERED: Hydrochlorothiazide 25 MG TAB PO SCH (09:00)
[2022-02-21] MEDS: Fluticasone Propionate Nasal Spray 16 gm Bottle NASAL SCH (11:36)
[2022-02-21 11:52] VITALS: BP 174/74; TEMP 97.1
[2022-02-21] MEDS ORDERED: metFORMIN XR 500 MG TAB PO SCH (21:00)
== END 2022-02-21 13:30 | disposition home or self-care (01) | DRG 189 ==
LOC: ERS 17:29 → 2NO 20:34
PROVIDERS: ADMIT Student in an Organized Health Care Education/Training Program; ATTEND Student in an Organized Health Care Education/Training Program
DX: J96.21 Acute and chronic respiratory failure with hypoxia (principal); I13.0 Hypertensive heart and chronic kidney disease with heart failure and stage 1 through stage 4 chronic kidney disease, or unspecified chronic kidney disease; I50.32 Chronic diastolic (congestive) heart failure; J44.1 Chronic obstructive pulmonary disease with (acute) exacerbation; Z20.822 Contact with and (suspected) exposure to COVID-19; E78.5 Hyperlipidemia, unspecified; N18.9 Chronic kidney disease, unspecified; E11.22 Type 2 diabetes mellitus with diabetic chronic kidney disease; N18.2 Chronic kidney disease, stage 2 (mild); D63.1 Anemia in chronic kidney disease; Z96.653 Presence of artificial knee joint, bilateral; F32.A Depression, unspecified; Z90.49 Acquired absence of other specified parts of digestive tract; Z90.710 Acquired absence of both cervix and uterus; Z88.0 Allergy status to penicillin; Z79.82 Long term (current) use of aspirin; Z79.51 Long term (current) use of inhaled steroids; Z79.899 Other long term (current) drug therapy; Z79.84 Long term (current) use of oral hypoglycemic drugs; Z99.81 Dependence on supplemental oxygen
CPT/HCPCS: 36415; 36416; 36600; 71045; 71275; 80048; 80053; 82550; 82805; 83036; 83605; 83690; 83735; 83880; 84100; 84145; 84484; 85025; 85379; 86140; 87040; 93005; 94640; 96365; 96375; J0360; J1100; J1650; J1815; J1940; J1956; J7512; J7611; J7620; J8540; Q9967; U0003; U0005

== ENCOUNTER 2022-02-24 01:45 | Observation (INO) | payer OTHER ==
[2022-02-24 04:32] VITALS: BMI 44.9
[2022-02-24] MEDS ORDERED: HumaLOG 300 UNITS/3 ML VIAL SC PRN ×2 (04:36)
[2022-02-24] MEDS ORDERED: Dextrose 5% in Water 1,000 ML IV PRN (04:36)
[2022-02-24] MEDS ORDERED: Dextrose 50% Abboject 50 ML SYRINGE SLOW IVP PRN (04:36)
[2022-02-24] MEDS ORDERED: Loratadine 10 MG TAB PO PRN (04:39)
[2022-02-24] MEDS ORDERED: Benzonatate 100 MG CAP PO PRN (04:39)
[2022-02-24] MEDS ORDERED: Albuterol Sulfate 2.5 mg/3 ml Neb NEB PRN (04:54)
[2022-02-24] MEDS: Nitroglycerin 2% Ointment 1 INCH/1 GM Packet TOP SCH ×2 (05:06→12:29)
[2022-02-24 07:42] LABS: Troponin I Less than 0.010 ng/mL (< 0.028)
[2022-02-24] MEDS: Lactated Ringer's 1,000 ML IV SCH ×3 (08:26→21:20)
[2022-02-24] MEDS: Enoxaparin Sodium 40 MG/0.4 ML SYRINGE SC SCH (08:27)
[2022-02-24] MEDS: Valsartan 80 MG TAB PO SCH (08:28)
[2022-02-24] MEDS: Fluticasone Propionate Nasal Spray 16 gm Bottle NASAL SCH (08:28)
[2022-02-24] MEDS: guaiFENesin ER 600 MG TAB PO SCH ×2 (08:29→20:48)
[2022-02-24] MEDS: Atorvastatin Calcium 10 MG TAB PO SCH (08:29)
[2022-02-24] MEDS: hydrALAZINE 25 MG TAB PO SCH ×3 (08:29→20:47)
[2022-02-24] MEDS: Amlodipine 10 MG TAB PO SCH (08:29)
[2022-02-24] MEDS: metFORMIN XR 500 MG TAB PO SCH ×2 (08:30→20:48)
[2022-02-24] MEDS: Hydrochlorothiazide 25 MG TAB PO SCH (08:30)
[2022-02-24] MEDS: Citalopram 20 MG TAB PO SCH (08:30)
[2022-02-24] MEDS: Montelukast Sodium 10 mg Tablet PO SCH (08:31)
[2022-02-24] MEDS ORDERED: Regadenoson 0.4 MG/5 ML SYRINGE ONE (08:33)
[2022-02-24] MEDS ORDERED: Empagliflozin 10 MG TAB PO SCH (09:00)
[2022-02-24] MEDS ORDERED: Aspirin 325 MG TAB PO SCH (09:00)
[2022-02-24] MEDS ORDERED: Aspirin 81 mg Enteric Coated Tablet PO SCH (09:00)
[2022-02-24] MEDS ORDERED: Budesonide/Glycopyr/Formoterol [Breztri Aerosphere Inhaler] INH SCH (09:00)
[2022-02-24] MEDS: Mometasone 100 MCG/Formoterol 5 MCG 120 PUFF INHALER INH SCH ×2 (10:22→19:09)
[2022-02-24] MEDS ORDERED: predniSONE 20 MG TAB PO SCH (12:00)
[2022-02-24] MEDS ORDERED: rOPINIRole HCl 1 MG TAB PO SCH (21:00)
[2022-02-24] MEDS ORDERED: Acetaminophen 325 MG TAB PO SCH (21:09)
[2022-02-25 05:05] LABS: Anion Gap 15 mmol/L (10-20); BUN (Urea Nitrogen) 22 mg/dL (9.8-20.1); Calc. Creatinine Clearance 87 mL/min (70-130); Calcium 8.6 mg/dL (7.8-10.44); Carbon Dioxide 28 mmol/L (23-31); Chloride 103 mmol/L (98-107); Estimated GFR 54; Glucose 163 mg/dL (83-110); Potassium 3.6 mmol/L (3.5-5.1); Sodium 142 mmol/L (136-145)
[2022-02-25] MEDS: Mometasone 100 MCG/Formoterol 5 MCG 120 PUFF INHALER INH SCH (07:27)
[2022-02-25] MEDS ORDERED: Empagliflozin 25 MG TAB PO SCH (09:00)
[2022-02-25] MEDS ORDERED: Aspirin 81 mg Enteric Coated Tablet PO SCH (09:00)
[2022-02-25] MEDS: Atorvastatin Calcium 10 MG TAB PO SCH (10:13)
[2022-02-25] MEDS: metFORMIN XR 500 MG TAB PO SCH (10:13)
[2022-02-25] MEDS: Valsartan 80 MG TAB PO SCH (10:13)
[2022-02-25] MEDS: Citalopram 20 MG TAB PO SCH (10:13)
[2022-02-25] MEDS: Montelukast Sodium 10 mg Tablet PO SCH (10:14)
[2022-02-25] MEDS: hydrALAZINE 25 MG TAB PO SCH (10:14)
[2022-02-25] MEDS: guaiFENesin ER 600 MG TAB PO SCH (10:14)
[2022-02-25] MEDS: Amlodipine 10 MG TAB PO SCH (10:14)
[2022-02-25] MEDS: Hydrochlorothiazide 25 MG TAB PO SCH (10:15)
[2022-02-25] MEDS: Enoxaparin Sodium 40 MG/0.4 ML SYRINGE SC SCH (10:15)
[2022-02-25] MEDS: Fluticasone Propionate Nasal Spray 16 gm Bottle NASAL SCH (10:15)
[2022-02-25 11:49] VITALS: BP 151/70; TEMP 98
[2022-02-25] MEDS ORDERED: predniSONE 20 MG TAB PO SCH (12:00)
== END 2022-02-25 15:18 | disposition home or self-care (01) ==
LOC: 2SW 01:45
PROVIDERS: ADMIT Emergency Medicine; ATTEND Emergency Medicine
DX: R07.89 Other chest pain (principal); I13.0 Hypertensive heart and chronic kidney disease with heart failure and stage 1 through stage 4 chronic kidney disease, or unspecified chronic kidney disease; E11.22 Type 2 diabetes mellitus with diabetic chronic kidney disease; N18.2 Chronic kidney disease, stage 2 (mild); I50.30 Unspecified diastolic (congestive) heart failure; D63.1 Anemia in chronic kidney disease; J44.9 Chronic obstructive pulmonary disease, unspecified; E78.5 Hyperlipidemia, unspecified; G47.33 Obstructive sleep apnea (adult) (pediatric); G25.81 Restless legs syndrome; J30.1 Allergic rhinitis due to pollen; J30.81 Allergic rhinitis due to animal (cat) (dog) hair and dander; R82.71 Bacteriuria; E11.65 Type 2 diabetes mellitus with hyperglycemia; Z77.22 Contact with and (suspected) exposure to environmental tobacco smoke (acute) (chronic); Z79.52 Long term (current) use of systemic steroids; Z79.84 Long term (current) use of oral hypoglycemic drugs; Z79.899 Other long term (current) drug therapy; Z88.0 Allergy status to penicillin; Z88.8 Allergy status to other drugs, medicaments and biological substances
CPT/HCPCS: 78452; 80048; 82962 ×2; 84484; 93017; 94640 ×5; 94664; 96372 ×2; A9500; G0378 ×2; 36415; 36416; J1650; J1815; J2785; J7120; J7512; J7620

== ENCOUNTER 2023-02-20 18:24 | Emergency (ER) | payer OTHER ==
[2023-02-20 19:41] LABS: Bilirubin Negative (Negative); Blood, Urine Negative (Negative); Glucose, Urine (Dipstick) 250 mg/dL (Negative); Ketone, Urine Negative (Negative); Leukocyte Negative (Negative); Nitrite Negative (Negative); Protein, Urine (Dipstick) Negative (Neg-Trace); Urobilinogen 0.2 mg/dL (Less than 2); pH, Urine 5.5 (5.0-9.0)
[2023-02-20 19:46] LABS: Clarity Clear (Clear); Specific Gravity, Urine 1.031 (1.002-1.036)
[2023-02-20 19:48] LABS: CAUTI Indications for Culture Pelvic or flank pain; RBC/HPF 0-3 HPF (0-3); WBC/HPF 0-3 HPF (0-3)
[2023-02-20 19:52] LABS: Bacteria/HPF Rare-Few HPF (None Seen); Squamous Epithelial 0-3 HPF (0-3)
[2023-02-20 19:53] LABS: Other Microscopic Description Less than 2 mL rec'd; Urine Culture Reflex No No
== END 2023-02-20 20:10 | disposition home or self-care (01) ==
LOC: ERS 18:24
DX: M54.9 Dorsalgia, unspecified (principal); G89.29 Other chronic pain; E11.9 Type 2 diabetes mellitus without complications; I11.0 Hypertensive heart disease with heart failure; I50.9 Heart failure, unspecified; E78.5 Hyperlipidemia, unspecified; J44.9 Chronic obstructive pulmonary disease, unspecified; Z79.82 Long term (current) use of aspirin; Z79.84 Long term (current) use of oral hypoglycemic drugs; Z79.899 Other long term (current) drug therapy
CPT/HCPCS: 81001; 99283

== ENCOUNTER 2023-08-04 12:51 | Outpatient (CLI) | payer OTHER | END 2023-08-04 12:52 | disposition home or self-care (01) | LOC: RAD 12:51 | PROVIDERS: ATTEND Internal Medicine Critical Care Medicine | DX: R06.00 Dyspnea, unspecified (principal) | CPT/HCPCS: 71046 ==

== ENCOUNTER 2024-05-01 19:42 | Emergency (ER) | payer MEDICARE, OTHER ==
[2024-05-01 21:02] LABS: #Basophils Less than 0.03 10x3/uL (0.0-0.2); #Eosinophils Less than 0.03 10x3/uL (0.0-0.7); %Basophils 0.2 % (0.0-1.0); %Eosinophils 0.1 % (0.0-10.0); %Neutrophils 83.6 % (42.0-75.0); Hematocrit 39.2 % (36.0-47.0); Hemoglobin 11.9 g/dL (12.0-16.0); Mean Corpuscular HGB CONC 30.4 g/dL (32.0-36.0); Mean Corpuscular Hemoglobin 26.3 pg (27.0-31.0); Mean Corpuscular Volume 86.7 fL (78.0-98.0); Mean Platelet Volume 11.6 fL (7.4-10.4); Platelet Count 172 10x3/uL (130-400); RBC Distribution Width 15.1 % (11.5-14.5); Red Blood Cell (RBC) Count 4.52 mill/uL (4.20-5.40)
[2024-05-01 21:17] LABS: ALT (SGPT) 26 U/L (8-55); AST (SGOT) 21 U/L (5-34); Albumin 3.4 g/dL (3.4-4.8); Alkaline Phosphatase 70 U/L (40-110); Anion Gap 18 mmol/L (10-20); BUN (Urea Nitrogen) 32 mg/dL (9.8-20.1); Bilirubin, Total 0.2 mg/dL (0.2-1.2); Calc. Creatinine Clearance 0 mL/min (70-130); Calcium 8.6 mg/dL (7.8-10.44); Carbon Dioxide 23 mmol/L (23-31); Chloride 103 mmol/L (98-107); Estimated GFR 35; Globulin 2.9 g/dL (2.4-3.5); Glucose 364 mg/dL (83-110); Potassium 4.3 mmol/L (3.5-5.1); Protein, Total 6.3 g/dL (5.8-8.1); Sodium 140 mmol/L (136-145)
[2024-05-01 21:21] LABS: Troponin I Less than 0.010 ng/mL (< 0.028)
[2024-05-01 23:48] LABS: Lactic Acid 1.31 mmol/L (0.5-2.2)
== END 2024-05-01 23:26 | disposition home or self-care (01) ==
LOC: ERS 19:42
DX: E11.65 Type 2 diabetes mellitus with hyperglycemia (principal); R06.02 Shortness of breath; I11.0 Hypertensive heart disease with heart failure; I50.9 Heart failure, unspecified; J44.9 Chronic obstructive pulmonary disease, unspecified; E78.5 Hyperlipidemia, unspecified; Z79.82 Long term (current) use of aspirin; Z79.84 Long term (current) use of oral hypoglycemic drugs; Z79.899 Other long term (current) drug therapy; Z99.81 Dependence on supplemental oxygen
CPT/HCPCS: 36415; 71045; 80053; 83605; 83880; 84484; 85025; 87040; 87428; 93005